=== PATIENT | male | born 1975 | race Caucasian/White ===

== ENCOUNTER 2017-07-23 08:09 | Inpatient (IN) | payer OTHER ==
[~2017-07-23] VITALS: Ht 177.8 cm; Wt 83.9 kg
[2017-07-23 08:29] LABS: BASOPHIL (%) 0.4 % (0-1); BASOPHIL COUNT 0.1 K/uL (0-0.1); EOSINOPHIL (%) 0.5 % (0-5); EOSINOPHIL COUNT 0.1 K/uL (0-0.3); IMMATURE GRANULOCYTE (%) 2.2 % (0.0-0.7); LYMPHOCYTE (%) 18.2 % (15-42); LYMPHOCYTE COUNT 3.8 K/uL (1.0-2.8); MCH 31.7 PG (29.0-34.0); MCHC 34.9 G/DL (30.0-36.0); MCV 90.9 FL (86-99); MONOCYTE (%) 5.1 % (3-12); MONOCYTE COUNT 1.1 K/uL (0-0.8); NEUTROPHIL (%) 73.6 % (45-76); NEUTROPHIL COUNT 15.2 K/uL (1.8-6.4); PLATELET COUNT 311 K/uL (156-360); RBC DIS.WIDTH-SD 43.1 % (39-53); RED BLOOD COUNT 4.73 M/uL (4.00-5.50); WHITE BLOOD COUNT 20.6 K/uL (4.1-10.2)
[2017-07-23 08:38] LABS: AMYLASE 63 IU/L (1-118); CHLORIDE 105 mEq/L (99-109); SODIUM 138 mEq/L (136-147)
[2017-07-23 08:40] LABS: GLUCOSE 133 mg/dL (70-99)
[2017-07-23 08:42] LABS: INTER. NORMALIZED RATIO 1.6
[2017-07-23 08:43] LABS: SERUM ETHYL ALCOHOL < 10 mg/dL
[2017-07-23 08:44] LABS: PTT 27.9 SEC (25-37)
[2017-07-23 08:45] LABS: GFR ESTIMATE (CALCULATED) > 59 mL/min/ (58.99-99999); UREA NITROGEN (BUN) 18 mg/dL (9-23)
[2017-07-23 08:47] LABS: LIPASE 44 U/L (1.0-51.0)
[2017-07-23 10:32] LABS: TOTAL PROTEIN 6.6 g/dL (6.4-8.3)
[2017-07-23 10:35] LABS: ALKALINE PHOSPHATASE 70 IU/L (3-129)
[2017-07-23 10:37] LABS: AST (GOT) 14 IU/L (2-34)
[2017-07-23 10:38] LABS: ALT (GPT) 14 IU/L (3-49); DIRECT BILIRUBIN 0.3 mg/dL (0.0-0.3)
[2017-07-23] MEDS ORDERED: XARELTO20 MG PO (11:31)
[2017-07-23] MEDS ORDERED: ZOLOFT50 MG PO (11:31)
[2017-07-23 16:30] VITALS: BP 115/65
[2017-07-23 17:22] VITALS: BP 115/64
[2017-07-23 20:22] VITALS: BP 106/67
[2017-07-23 23:54] VITALS: BP 108/59
[2017-07-24] VITALS (7 sets, daily range): BP systolic 110–141; BP diastolic 58–72
[2017-07-24 11:07] LABS: HEMOGLOBIN 13.5 G/DL (12.5-16.6); MCH 31.8 PG (29.0-34.0); MCHC 33.8 G/DL (30.0-36.0); MCV 94.1 FL (86-99); PLATELET COUNT 233 K/uL (156-360); RBC DIS.WIDTH-CV 13.4 % (11.8-14.6); RBC DIS.WIDTH-SD 46.1 % (39-53); RED BLOOD COUNT 4.25 M/uL (4.00-5.50); WHITE BLOOD COUNT 12.7 K/uL (4.1-10.2)
[2017-07-24 11:30] LABS: ALKALINE PHOSPHATASE 56 IU/L (3-129); ALT (GPT) 49 IU/L (3-49); AST (GOT) 48 IU/L (2-34); CHLORIDE 102 MEQ/L (99-109); CREATININE 0.9 MG/DL (0.6-1.3); GFR ESTIMATE (CALCULATED) > 59 mL/min/ (58.99-99999); GLUCOSE 112 mg/dL (70-99); POTASSIUM 4.1 MEQ/L (3.7-5.4); SODIUM 134 MEQ/L (136-147); TOTAL BILIRUBIN 0.9 MG/DL (0.0-1.0); TOTAL PROTEIN 6.6 G/DL (6.4-8.3); UREA NITROGEN (BUN) 11 mg/dL (9-23)
[2017-07-25 04:25] VITALS: BP 108/60
[2017-07-25 07:54] VITALS: BP 117/62
[2017-07-25 11:37] VITALS: BP 120/64
[2017-07-25 16:37] VITALS: BP 110/64
[2017-07-25 20:00] VITALS: BP 120/61
[2017-07-25 23:37] VITALS: BP 113/61
[2017-07-26 03:53] VITALS: BP 120/71
[2017-07-26 08:22] VITALS: BP 108/65
[2017-07-26 12:02] VITALS: BP 124/68
[2017-07-26 16:23] VITALS: BP 125/72
[2017-07-26 20:32] VITALS: BP 107/63
[2017-07-26 22:25] VITALS: BP 138/65
[2017-07-27] VITALS: BP 119/66
[2017-07-27 04:20] VITALS: BP 109/68
[2017-07-27 08:18] VITALS: BP 115/68
[2017-07-27 11:59] VITALS: BP 116/72
[2017-07-27 14:55] VITALS: BP 129/72
[2017-07-27 20:00] VITALS: BP 118/66
[2017-07-28] VITALS (7 sets, daily range): BP systolic 117–146; BP diastolic 70–86
[2017-07-28] MEDS ORDERED: SENNA LAX8.6 MG PO (13:12)
[2017-07-28] MEDS ORDERED: Salonpas 4% Patch TD (13:12)
[2017-07-28] MEDS ORDERED: POLYETHYLENE GL17 GM PO (13:12)
[2017-07-28] MEDS ORDERED: OXYCODONE HCL5 MG PO (13:12)
[2017-07-29 04:08] VITALS: BP 120/71
[2017-07-29 07:56] VITALS: BP 118/76
[2017-07-29 11:19] VITALS: BP 112/70
[2017-07-29 16:54] VITALS: BP 1112/70
[2017-07-29 20:22] VITALS: BP 117/72
== END 2017-07-29 22:23 | disposition home or self-care (01) | DRG 988 ==
LOC: TRA 08:09 → EDOF 10:31 → 3EAST 10:31 → ENRESERV 12:18 → 3EAST 15:35
PROVIDERS: Emergency Medicine; Surgery
DX: S06.0X1A Concussion with loss of consciousness of 30 minutes or less, initial encounter (principal); S22.43XA Multiple fractures of ribs, bilateral, initial encounter for closed fracture; S22.20XA Unspecified fracture of sternum, initial encounter for closed fracture; S36.892A Contusion of other intra-abdominal organs, initial encounter; R40.2412 Glasgow coma scale score 13-15, at arrival to emergency department; S30.1XXA Contusion of abdominal wall, initial encounter; S52.611A Displaced fracture of right ulna styloid process, initial encounter for closed fracture; S52.512A Displaced fracture of left radial styloid process, initial encounter for closed fracture; D72.829 Elevated white blood cell count, unspecified; R79.1 Abnormal coagulation profile; J98.11 Atelectasis; R09.02 Hypoxemia; R59.0 Localized enlarged lymph nodes; N28.1 Cyst of kidney, acquired; M51.27 Other intervertebral disc displacement, lumbosacral region; F41.9 Anxiety disorder, unspecified; K59.00 Constipation, unspecified; V49.40XA Driver injured in collision with unspecified motor vehicles in traffic accident, initial encounter; Y92.410 Unspecified street and highway as the place of occurrence of the external cause; Z86.711 Personal history of pulmonary embolism; Z86.718 Personal history of other venous thrombosis and embolism; Z79.01 Long term (current) use of anticoagulants
CPT/HCPCS: 70450; 71046; 71260; 72125; 72129; 72132; 72141; 73110; 74177; 76770; 80048; 80053; 80076; 81003; 82150; 83690; 84153; 85025; 85027; 85610; 85730; 86850; 86900; 86901; 93005; 93970; 94799; 99281; 99285; G0480; J1170; J2270; J2405; J3480